=== PATIENT | female | born 1960 | race Caucasian/White ===

== ENCOUNTER 2024-06-27 10:53 | Emergency (ER) | payer OTHER, MEDICARE ==
[2024-06-27 11:42] LABS: Absolute Basophils 0.1 K/uL (0-0.5); Absolute Eosinophils 0.1 K/uL (0-0.5); Absolute Monocytes 0.4 K/uL (0.1-1.3); Absolute Neutrophil 2.5 K/uL (1.8-8.0); Basophils % 2.2 % (0-1.3); Eosinophils % 3.6 % (0-4.4); Hematocrit 24.3 % (36.0-45.0); Hemoglobin 6.9 g/dL (12.0-15.0); MCH 15.7 pg (27.0-35.0); MCHC 28.5 g/dL (32.0-36.0); MCV 55.2 fL (80-100); MPV 8.2 fL (7.6-11.3); Monocytes % 9.1 % (3.3-12.3); Neutrophils % 61.1 % (41.7-73.7); Platelets 428 thou/uL (152-406); Red Cell Distribution Width 19.6 % (12.1-15.2)
[2024-06-27 11:45] LABS: PT Prothrombin Time 11.1 SECONDS (9.4-12.5); PTT, Activated Partial Thromb 25.6 SECONDS (24.3-36.9); Protime INR 0.99
[2024-06-27 11:56] LABS: Albumin 3.7 g/dL (3.4-5.0); Anion Gap 6.9 mEq/L (5.0-15.0); Bilirubin Total 0.8 mg/dL (0.2-1.0); Ferritin 4.7 ng/mL (8-388); Globulin 3.8 g/dL (2.3-3.5); Potassium 3.9 mEq/L (3.5-5.1); Protein, Total 7.5 g/dL (6.4-8.2)
[2024-06-27 12:18] LABS: White Blood Cell Scan OK (OK)
[2024-06-27 12:20] LABS: Anisocytosis 2+; Blood Morphology Comment NOTED (NOT SEEN); Hypochromasia 2+; Microcytosis 3+; Platelet Estimate INCR; Polychromasia SLIGHT
[2024-06-27 12:21] LABS: Ovalocytes SLIGHT; Rouleau SLIGHT
[2024-06-27] MEDS ORDERED: NA CHLORIDE 0.9% 500 ML ONE (13:35)
--- NOTE | 2024-06-27 16:54 | EDPHYS ---
Physician Documentation [facility] Name: Neva Foster Age: 64 yrs Sex: Female : 1960 Arrival Date: 06/27/2024 Time: 10:53 Bed 17 Private MD: ED Physician Scott Flowers HPI: 06/27 13:31 This 64 yrs old Female presents to ER via Ambulatory with complaints of Abnormal Lab rt Results - low hemoglobin. 13:31 Patient presents to the ED with low hemoglobin. Patient states that over the past 6 rt months, she has had increasing dyspnea, fatigue. Hemoglobin in the outpatient labs were 6.9. Denies any melena, rectal bleeding, other bleeding. Symptoms are moderate in severity, no other aggravating relieving factors.. Historical: - Allergies: 11: No Known Allergies; ap3 - PMHx: 11:09 colon removal-J pouch; ap3 - Immunization history:: Client reports receiving the 2nd dose of the Covid vaccine. - Infectious Disease History:: Denies. - Social history:: Smoking status: Patient denies any tobacco usage or history of. Patient uses alcohol, weekly. - Family history:: not pertinent. ROS: 13:31 Constitutional: Negative for fever, chills, and weight loss, Cardiovascular: Negative rt for chest pain, palpitations, and edema, Abdomen/GI: Negative for abdominal pain, nausea, vomiting, diarrhea, and constipation, MS/Extremity: Negative for injury and deformity, Skin: Negative for injury, rash, and discoloration, Neuro: Negative for headache, weakness, numbness, tingling, and seizure, 13:31 Constitutional: Positive for fatigue, Negative for fever, 13:31 Respiratory: Positive for shortness of breath, Negative for cough, Exam: 13:31 Constitutional: This is a well developed, well nourished patient who is awake, alert, rt and in no acute distress. Head/Face: Normocephalic, atraumatic. Chest/axilla: Normal chest wall appearance and motion. Nontender with no deformity. No lesions are appreciated. Cardiovascular: Regular rate and rhythm with a normal S1 and S2. No gallops, murmurs, or rubs. Normal PMI, no JVD. No pulse deficits. Respiratory: Lungs have equal breath sounds bilaterally, clear to auscultation and percussion. No rales, rhonchi or wheezes noted. No increased work of breathing, no retractions or nasal flaring. Abdomen/GI: Soft, non-tender, with normal bowel sounds. No distension or tympany. No guarding or rebound. No evidence of tenderness throughout. Skin: Warm, dry with normal turgor. Normal color with no rashes, no lesions, and no evidence of cellulitis. MS/ Extremity: Pulses equal, no cyanosis. Neurovascular intact. Full, normal range of motion. Neuro: Awake and alert, GCS 15, oriented to person, place, time, and situation. Cranial nerves II-XII grossly intact. Motor strength 5/5 in all extremities. Sensory grossly intact. Cerebellar exam normal. Normal gait. 13:31 Eyes: Pale conjunctiva. Vital Signs: 11:06 BP 122 / 64; Pulse 74; Resp 16; Temp 97.2; Pulse Ox 100% ; Weight 58.06 kg; Height 4 ap3 ft. 11 in. ; Pain 0/10; 11:13 BP 122 / 272; Pulse 70; Resp 18; Pulse Ox 100% on R/A; ld1 12:28 BP 111 / 50; Pulse 66; Resp 18; Pulse Ox 100% on R/A; ld1 13:27 BP 126 / 62; Pulse 74; Resp 18; Pulse Ox 96% on R/A; ld1 14:06 BP 129 / 61; Pulse 72; Resp 18; Pulse Ox 100% on R/A; ld1 14:19 BP 119 / 55; Pulse 72; Resp 18; Pulse Ox 100% on R/A; ld1 15:06 BP 123 / 56; Pulse 68; Resp 18; Pulse Ox 100% on R/A; ld1 15:35 BP 114 / 58; Pulse 64; Resp 18; Pulse Ox 100% on R/A; ld1 15:59 BP 112 / 62; Pulse 62; Resp 18; Pulse Ox 100% on R/A; ld1 17:18 BP 124 / 63; Pulse 64; Resp 18; Pulse Ox 100% on R/A; tl4 11:06 Body Mass Index 25.85 (58.06 kg, 149.86 cm) ap3 11:06 Pain Scale: Adult ap3 MDM: 11:04 Patient medically screened. rt 16:54 Differential Diagnosis Symptomatic anemia. Data reviewed: vital signs, nurses notes, rt lab test result(s). Consideration of Admission/Observation Escalation of care including admission/observation considered. This process seems to be over many months. There is no signs of active bleeding. Symptomatically cleaving with blood transfusion. At this time, patient not likely to benefit from admission. Patient stable for outpatient care, return precautions discussed.. Care significantly affected by the following chronic conditions: Ulcerative colitis. Counseling: I had a detailed discussion with the patient and/or guardian regarding the historical points, exam findings, and any diagnostic results supporting the discharge/admit diagnosis, lab results, the need for outpatient follow up, to return to the emergency department if symptoms worsen or persist or if there are any questions or concerns that arise at home. Response to treatment: the patient's symptoms have markedly improved after treatment. 06/27 11:19 Order name: CBC with Diff; Complete Time: 13:31 rt 06/27 11:19 Order name: CMP; Complete Time: 13: rt 06/27 11:19 Order name: PT-INR; Complete Time: 12:05 rt 06/27 11:19 Order name: Ptt, Activated; Complete Time: 12:05 rt 06/27 11:19 Order name: Iron Level; Complete Time: 13: rt 06/27 11:19 Order name: TIBC; Complete Time: 13: rt 06/27 11:19 Order name: Vitamin B12; Complete Time: 13: rt 06/27 11:19 Order name: Type And Screen rt 06/27 11:46 Order name: CBC Smear Scan; Complete Time: 13: EDMS 06/27 12:09 Order name: Bb Add On eb 06/27 12:25 Order name: Packed RBC Leukored EDID 06/27 13:08 Order name: ABO/RH no charge; Complete Time: 13: EDMS 06/27 11:19 Order name: Saline Lock; Complete Time: 11:26 rt 06/27 12:18 Order name: Misc. Order: inform MD when transfusion is complete; Complete Time: 16:51 rt Administered Medications: No medications were administered Disposition Summary: 06/27/24 16:53 Discharge Ordered Notes: Location: Home rt Problem: an ongoing problem rt Symptoms: have improved rt Condition: Stable rt Diagnosis - Iron deficiency anemia rt Followup: rt - With: Private Physician - When: 2 - 3 days - Reason: Discharge Instructions: - Discharge Summary Sheet rt - Iron Deficiency Anemia, Adult rt - Blood Transfusion, Adult, Care After rt Forms: - Medication Reconciliation Form rt - Antibiotic Education rt - Prescription Opioid Use rt - Patient Portal Instructions rt - Leadership Thank You Letter rt Signatures: Dispatcher [employer] Maribel Link, RN RN ap3 Suzy Garduno RN RN ld1 Scott Flowers MD MD rt Corrections: (The following items were deleted from the chart) 11:19 11:19 CBC+H.LAB.BRZ ordered. EDMS EDMS 11:19 11:19 COMPREHENSIVE METABOLIC PANEL+C.LAB.BRZ ordered. EDMS EDMS 11:19 11:19 PROTIME (+INR)+COAG.LAB.BRZ ordered. EDMS EDMS 11:19 11:19 PTT, ACTIVATED+COAG.LAB.BRZ ordered. EDMS EDMS 11:19 11:19 FERRITIN+C.LAB.BRZ ordered. EDMS EDMS 11:19 11:19 TRANSFERRIN SAT/IRON BINDING+C.LAB.BRZ ordered. EDMS EDMS 11:19 11:19 VITAMIN B12+C.LAB.BRZ ordered. EDMS EDMS 11:19 11:19 TYPE AND SCREEN+BB.LAB.BRZ ordered. EDMS EDMS 13:04 12:26 ABO/RH TYPING+BB.LAB.BRZ ordered. EDMS EDMS
--- NOTE | 2024-06-27 16:54 | ER ---
Nurse's Notes [facility] Name: Neva Foster Age: 64 yrs Sex: Female : 1960 Arrival Date: 06/27/2024 Time: 10:53 Bed 17 Private MD: Diagnosis: Iron deficiency anemia Presentation: 06/27 11:06 Chief complaint: Patient states: she was sent by her PCP for low hemoglobin of being ap3 reported being 6.9. patient denies any blood in stool, or other bleeding. patient reports fatigue. Coronavirus screen: At this time, the client does not indicate any symptoms associated with coronavirus-19. Ebola Screen: No symptoms or risks identified at this time. Initial Sepsis Screen: Does the patient meet any 2 criteria? No. Patient's initial sepsis screen is negative. Does the patient have a suspected source of infection? No. Patient's initial sepsis screen is negative. Risk Assessment: Do you want to hurt yourself or someone else? Patient reports no desire to harm self or others. Onset of symptoms is unknown. 11:06 Method Of Arrival: Ambulatory ap3 11:06 Acuity: RUBI 3 ap3 Triage Assessment: 11:10 General: Appears in no apparent distress. Behavior is calm, cooperative, appropriate ap3 for age, Reports fatigue for. Pain: Denies pain. Neuro: Level of Consciousness is awake, alert, obeys commands, Oriented to person, place, time, situation, Appropriate for age. Cardiovascular: Patient's skin is warm and dry. Respiratory: Airway is patent Respiratory effort is even, unlabored, Respiratory pattern is regular, symmetrical. Historical: - Allergies: 11:09 No Known Allergies; ap3 - PMHx: 11:09 colon removal-J pouch; ap3 - Immunization history:: Client reports receiving the 2nd dose of the Covid vaccine. - Infectious Disease History:: Denies. - Social history:: Smoking status: Patient denies any tobacco usage or history of. Patient uses alcohol, weekly. - Family history:: not pertinent. Screenin:10 [facility] ED Fall Risk Assessment (Adult) History of falling in the last 3 months, ap3 including since admission No falls in past 3 months (0 pts) Confusion or Disorientation No (0 pts) Intoxicated or Sedated No (0 pts) Impaired Gait No (0 pts) Mobility Assist Device Used No (0 pt) Altered Elimination No (0 pt) Score/Fall Risk Level 0 - 2 = Low Risk Oriented to surroundings, Maintained a safe environment, Educated pt \T\ family on fall prevention, incl call for assistance when getting out of bed, Assessed \T\ reinforced patient's understanding of fall precautions, Provided non-skid footwear, Hourly rounding (assess needs \T\ fall precautionary measures) done, Used ambulatory aids as needed (educated on \T\ assisted with), Used gait belt as appropriate. Abuse screen: Denies threats or abuse. Nutritional screening: No deficits noted. Tuberculosis screening: No symptoms or risk factors identified. Assessment: 11:14 General: Appears in no apparent distress. comfortable, Behavior is calm, cooperative, ld1 appropriate for age. Pain: Denies pain. Neuro: Level of Consciousness is awake, alert, obeys commands, Oriented to person, place, time, situation. Cardiovascular: Capillary refill < 3 seconds Patient's skin is warm and dry. Respiratory: Airway is patent Respiratory effort is even, unlabored. GI: Abdomen is flat, non-distended. : No signs and/or symptoms were reported regarding the genitourinary system. EENT: No signs and/or symptoms were reported regarding the EENT system. Derm: No signs and/or symptoms reported regarding the dermatologic system. Musculoskeletal: No signs and/or symptoms reported regarding the musculoskeletal system. 13:57 Reassessment: 1st unit PRBC started at 1357. ld1 14:06 Reassessment: Patient appears in no apparent distress at this time. No changes from ld1 previously documented assessment. Patient and/or family updated on plan of care and expected duration. Pain level reassessed. Patient is alert, oriented x 3, equal unlabored respirations, skin warm/dry/pink. 15:06 Reassessment: Patient appears in no apparent distress at this time. No changes from ld1 previously documented assessment. Patient and/or family updated on plan of care and expected duration. Pain level reassessed. 15:35 Reassessment: Patient appears in no apparent distress at this time. No changes from ld1 previously documented assessment. Patient and/or family updated on plan of care and expected duration. Pain level reassessed. Patient is alert, oriented x 3, equal unlabored respirations, skin warm/dry/pink. 2nd Unit PRBC infusion now. 15:59 Reassessment: Patient appears in no apparent distress at this time. No changes from ld1 previously documented assessment. Patient and/or family updated on plan of care and expected duration. Pain level reassessed. Patient is alert, oriented x 3, equal unlabored respirations, skin warm/dry/pink. 17:18 Reassessment: Patient appears in no apparent distress at this time. No changes from tl4 previously documented assessment. Patient and/or family updated on plan of care and expected duration. Pain level reassessed. Patient is alert, oriented x 3, equal unlabored respirations, skin warm/dry/pink. Vital Signs: 11:06 BP 122 / 64; Pulse 74; Resp 16; Temp 97.2; Pulse Ox 100% ; Weight 58.06 kg; Height 4 ap3 ft. 11 in. ; Pain 0/10; 11:13 BP 122 / 272; Pulse 70; Resp 18; Pulse Ox 100% on R/A; ld1 12:28 BP 111 / 50; Pulse 66; Resp 18; Pulse Ox 100% on R/A; ld1 13:27 BP 126 / 62; Pulse 74; Resp 18; Pulse Ox 96% on R/A; ld1 14:06 BP 129 / 61; Pulse 72; Resp 18; Pulse Ox 100% on R/A; ld1 14:19 BP 119 / 55; Pulse 72; Resp 18; Pulse Ox 100% on R/A; ld1 15:06 BP 123 / 56; Pulse 68; Resp 18; Pulse Ox 100% on R/A; ld1 15:35 BP 114 / 58; Pulse 64; Resp 18; Pulse Ox 100% on R/A; ld1 15:59 BP 112 / 62; Pulse 62; Resp 18; Pulse Ox 100% on R/A; ld1 17:18 BP 124 / 63; Pulse 64; Resp 18; Pulse Ox 100% on R/A; tl4 11:06 Body Mass Index 25.85 (58.06 kg, 149.86 cm) ap3 11:06 Pain Scale: Adult ap3 ED Course: 10:56 Patient arrived in ED. im 11:00 Scott Flowers MD is Attending Physician. rt 11:09 Triage completed. ap3 11:10 Arm band placed on left wrist. ap3 11:13 Suzy Garduno, RN is Primary Nurse. ld1 11:14 Patient has correct armband on for positive identification. Placed in gown. Bed in low ld1 position. Call light in reach. Side rails up X2. custodian manager on. Pulse ox on. NIBP on. 11:14 Door closed. Noise minimized. Warm blanket given. ld1 11:14 No provider procedures requiring assistance completed. ld1 11:27 Inserted saline lock: 20 gauge in right antecubital area, using aseptic technique. ld1 Blood collected. Flushed with 10 mL NS. 17:18 IV discontinued, intact, bleeding controlled, No redness/swelling at site. tl4 Administered Medications: No medications were administered Medication: :14 VIS not applicable for this client. ld1 Outcome: 16:53 Discharge ordered by . rt 17:18 Discharged to home ambulatory, tl4 17:18 Condition: stable 17:18 Discharge instructions given to patient, Instructed on discharge instructions, follow up and referral plans. Demonstrated understanding of instructions, follow-up care, 17:19 Patient left the ED. tl4 Signatures: Maribel Goldman, RN RN ap3 Suzy Garduno, RN RN ld1 Scott Flowers MD MD rt Ashtyn Menard Toni, RN RN tl4
[2024-06-27 17:30] VITALS: TEMP 97.2
[2024-06-27 17:47] VITALS: O2SAT 100
[2024-06-27 17:53] VITALS: BP 124/63
== END 2024-06-27 17:19 | disposition home or self-care (01) ==
LOC: ER 10:53
PROC: 30233N1 Transfusion of Nonautologous Red Blood Cells into Peripheral Vein, Percutaneous Approach (ICD-10-PCS; principal; 2024-06-27)
DX: D50.9 Iron deficiency anemia, unspecified (principal)
CPT/HCPCS: 85025; 36415; 86900; 86850; 85610; 86901; 85730; 86920 ×2; 82728; 82607; 83540; 80053; 84466; 99284; 36430; P9016 ×2; J7050